=== PATIENT | female | born 1945 | race Caucasian/White ===

== ENCOUNTER 2018-03-17 12:46 | Inpatient (IN) | payer MEDICARE ==
[~2018-03-17] VITALS: Ht 165.1 cm; Wt 84.8 kg
[2018-03-17] MEDS ORDERED: LACTATED RINGERS 1,000 ML IV SCH (13:17)
[2018-03-17] MEDS ORDERED: OTC SLEEP AIDE PO (13:25)
[2018-03-17 13:29] VITALS: BP 129/91
[2018-03-17] MEDS ORDERED: BUPIVACAINE/PF-EPI 0.5% 1:200K ONE (14:08)
[2018-03-17] MEDS ORDERED: FENTANYL PF 100 MCG/2ML ONE (14:23)
[2018-03-17] MEDS ORDERED: PROMETHAZINE 25 MG SUPP PR PRN (14:30)
[2018-03-17] MEDS ORDERED: OXYcodone 5 MG/5 ML ORAL.SOL UDC PO PRN (14:30)
[2018-03-17] MEDS ORDERED: ONDANSETRON 2MG/ML, 2ML IV PRN ×2 (14:30→17:00)
[2018-03-17] MEDS ORDERED: ACETAMINOPHEN 325 MG TABLET PO PRN ×2 (14:30→17:00)
[2018-03-17] MEDS ORDERED: ONDANSETRON ODT 8 MG PO PRN (14:30)
[2018-03-17] MEDS ORDERED: FENTANYL PF 100 MCG/2ML IV PRN (14:30)
[2018-03-17] MEDS ORDERED: PROMETHAZINE 25 MG/ML, 1ML IV PRN (14:30)
[2018-03-17] MEDS ORDERED: PROPOFOL 50 ML ONE (14:33)
[2018-03-17] MEDS ORDERED: MIDAZOLAM 1 MG/ML, 2ML ONE (14:36)
[2018-03-17] MEDS ORDERED: LIDOCAINE-MPF 2% ,5ML ONE (14:36)
[2018-03-17] MEDS ORDERED: ONDANSETRON 2MG/ML, 2ML ONE (14:36)
[2018-03-17] MEDS ORDERED: PROPOFOL 10 MG/ML, 20ML ONE (14:36)
[2018-03-17] MEDS ORDERED: BUPIVACAINE/PF-EPI 0.5% 1:200K INFIL ONE (14:58)
[2018-03-17] MEDS ORDERED: HYDROmorphone 1 MG/ML, 1ML IM PRN (17:00)
[2018-03-17] MEDS ORDERED: OXYcodone/APAP 5/325MG TABLET PO PRN (17:00)
[2018-03-17] MEDS: AMPICILLIN/SULBACTAM 3 GM in SODIUM CHLORIDE 0.9% 100 ML IV SCH ×2 (17:24→23:04)
[2018-03-17] MEDS: LACTATED RINGERS 1,000 ML IV SCH (18:25)
[2018-03-17 21:17] VITALS: BP 119/76
[2018-03-18 00:33] VITALS: BP 104/66
[2018-03-18 04:18] VITALS: BP 107/67
[2018-03-18] MEDS: AMPICILLIN/SULBACTAM 3 GM in SODIUM CHLORIDE 0.9% 100 ML IV SCH ×2 (05:03→10:50)
[2018-03-18 05:17] LABS: CREATININE 0.79 mg/dL (0.55-1.02)
[2018-03-18] MEDS: LACTATED RINGERS 1,000 ML IV SCH ×2 (07:56→20:55)
[2018-03-18 08:58] VITALS: BP 121/75
[2018-03-18] MEDS ORDERED: ZOLPIDEM 5MG TABLET PO PRN (11:00)
[2018-03-18] MEDS: ERTAPENEM 1 GM in SODIUM CHLORIDE 0.9% 50 ML IV SCH (12:03)
[2018-03-18 15:11] VITALS: BP 122/80
[2018-03-18 19:23] VITALS: BP 116/75
[2018-03-19 07:03] LABS: BASOPHILS # (AUTO) 0.03 x10^3/uL (0-0.1); BASOPHILS % (AUTO) 1 % (0-1); EOSINOPHILS # (AUTO) 0.28 x10^3/uL (0-0.4); EOSINOPHILS % (AUTO) 6 % (1-7); LYMPHOCYTES # (AUTO) 1.98 x10^3/uL (1-3.4); LYMPHOCYTES % (AUTO) 40 % (22-44); MD NO; MEAN CORPUSCULAR HEMOGLOBIN 30.2 pg (27.0-34.8); MEAN CORPUSCULAR HGB CONC 33.7 g/dL (32.4-35.8); MEAN CORPUSCULAR VOLUME 89.6 fL (80-100); MEAN PLATELET VOLUME 8.9 fL (7.4-10.4); MONOCYTES # (AUTO) 0.44 x10^3/uL (0.2-0.8); MONOCYTES % (AUTO) 9 % (2-9); NEUTROPHILS # (AUTO) 2.24 x10^3/uL (1.8-6.8); NEUTROPHILS % (AUTO) 45 % (42-75); PLATELET COUNT 209 x10^3/uL (130-400); RED CELL DISTRIBUTION WIDTH 13.8 % (9.6-15.2)
[2018-03-19 07:11] LABS: ALANINE AMINOTRANSFERASE 29 U/L (12-78); ALBUMIN 3.2 g/dL (3.4-5.0); ANION GAP 6 mmol/L (5-15); C-REACTIVE PROTEIN, QUANT 0.12 mg/dL (0.02-0.49); CALCIUM 8.8 mg/dL (8.5-10.1); CHLORIDE 110 mmol/L (98-107); CREATININE 0.89 mg/dL (0.55-1.02)
[2018-03-19 07:14] LABS: ALKALINE PHOSPHATASE 75 U/L (45-117); BILIRUBIN,TOTAL 0.4 mg/dL (0.2-1.0); HCT (SEDRATE) 45.7 % (34.6-47.8); TOTAL PROTEIN 6.3 g/dL (6.4-8.2)
[2018-03-19 07:16] VITALS: BP 131/77
[2018-03-19] MEDS: ERTAPENEM 1 GM in SODIUM CHLORIDE 0.9% 50 ML IV SCH (11:48)
[2018-03-19] MEDS ORDERED: LIDOCAINE-MPF 2%, 2ML ONE (14:01)
[2018-03-19 16:28] VITALS: BP 114/78
[2018-03-19 16:30] VITALS: BP 114/78
[2018-03-19 19:05] VITALS: BP 121/83
[2018-03-19] MEDS: LACTATED RINGERS 1,000 ML IV SCH (20:00)
[2018-03-20 08:46] VITALS: BP 111/70
[2018-03-20] MEDS: LACTATED RINGERS 1,000 ML IV SCH ×2 (09:13→22:40)
[2018-03-20] MEDS: ERTAPENEM 1 GM in SODIUM CHLORIDE 0.9% 50 ML IV SCH (12:04)
[2018-03-20 21:00] VITALS: BP 121/78
[2018-03-21 07:12] VITALS: BP 93/66
[2018-03-21] MEDS: LACTATED RINGERS 1,000 ML IV SCH (12:00)
[2018-03-21] MEDS: ERTAPENEM 1 GM in SODIUM CHLORIDE 0.9% 50 ML IV SCH (12:02)
== END 2018-03-21 17:07 | disposition home or self-care (01) | DRG 513 ==
LOC: OR 12:46 → 4NOR 13:16 → OR 17:00 → DCLOUNGE 03-21 15:47
PROVIDERS: ADMIT Orthopaedic Surgery; ATTEND Orthopaedic Surgery
PROC: 0PDV0ZZ Extraction of Left Finger Phalanx, Open Approach (ICD-10-PCS; 2018-03-17)
PROC: 0J9K0ZZ Drainage of Left Hand Subcutaneous Tissue and Fascia, Open Approach (ICD-10-PCS; principal; 2018-03-17 14:30)
PROC: 02HV33Z Insertion of Infusion Device into Superior Vena Cava, Percutaneous Approach (ICD-10-PCS; 2018-03-19)
PROC: B5181ZA Fluoroscopy of Superior Vena Cava using Low Osmolar Contrast, Guidance (ICD-10-PCS; 2018-03-19)
PROC: B548ZZA Ultrasonography of Superior Vena Cava, Guidance (ICD-10-PCS; 2018-03-19)
DX: M86.8X8 Other osteomyelitis, other site (principal); E44.1 Mild protein-calorie malnutrition; R01.1 Cardiac murmur, unspecified; Z90.89 Acquired absence of other organs; Z80.3 Family history of malignant neoplasm of breast
CPT/HCPCS: 36415; 36569; 76937; 77001; 80053; 82565; 84520; 85025; 85651; 86140; 87070; 87075; 87205; G0378; J0295; J1335; J2250; J2405; J2704; J3010; J3490; C1751; J7120